=== PATIENT | female | born 1990 | race Caucasian/White ===

== ENCOUNTER 2016-07-01 09:23 | Emergency (ER) | payer OTHER ==
[~2016-07-01 09:23] MED LIST: /MOM400 PO; ACET50TA PO; ANUS2.5C2 PR; COLA50CA3 PO; IBUP600T26 PO; ZANT150T PO; [UNRECOGNIZED DRUG - OTHER] PO
[2016-07-01] MEDS ORDERED: IBUPROFEN 800 MG TAB As Ordered ONE (10:28)
--- NOTE | 2016-07-01 10:49 | REP ---
Clinical: Trauma. Technique: AP, lateral, bilateral oblique views. Findings: Minimally displaced oblique fracture of the fifth toe proximal phalanx with overlying soft tissue swelling noted. No other fracture or dislocation is appreciated. Impression: Minimally displaced fifth proximal phalanx fracture. Signed by Juan Maria MD 07/01/2016 10:41 A
--- NOTE | 2016-07-01 11:31 | EDDOCDS ---
Nurse's Notes [facility] Name: Rubi Mccauley Age: 26 yrs Sex: Female : 1990 Arrival Date: 07/01/2016 Time: 09:23 Bed TR8 Private MD: NO PRIMARY PHYSICIAN, . Diagnosis: Displaced fracture of distal phalanx of left lesser toe(s)-5th proximal phalanx fracture, Closed Presentation: 07/01 09:34 Presenting complaint: Patient states: injured left fifth toe, accidentally kicked a po baby gate. Adult Sepsis Screening: The patient does not have new or worsening altered mentation. Patient's respiratory rate is less than 22. Systolic blood pressure is greater than 100. Patient has a qSOFA score of 0- Negative Sepsis Screen. Suicide/Homicide risk assessment- the patient denies having any suicidal and/or homicidal ideations and does not present with any other emotional, behavioral or mental health complaints. Status: The patient is a dependent. Transition of care: patient was not received from another setting of care. 09:34 Acuity: TAMEKA Level 4 po 09:34 Method Of Arrival: Walkin/Carried/Asstd po Triage Assessment: 09:36 General: Appears in no apparent distress, Behavior is appropriate for age, cooperative, po pleasant. Pain: Location: left fifth toe Pain currently is 4 out of 10 on a pain scale. Is continuous Aggravated by weight bearing. Pt Declines HIV testing. Neurological: No deficits noted. Respiratory: Airway is patent Respiratory effort is even, unlabored. Derm: Skin is pink, warm & dry. 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 multivitamin Oral tab 1 tablet daily - PMHx: none; - PSHx: Tonsillectomy; - Social history: Smoking status: Patient states was never smoker of tobacco. No barriers to communication noted, The patient speaks fluent American. - Family history: Not pertinent. - : The pt / caregiver states he / she is not on anticoagulants. Home medication list is obtained from the patient. - Exposure Risk Screening:: None identified. Screenin:28 Screening information is obtained from the patient. Fall risk: At risk due to injury. ms18 Assistance ADL's: requires no assistance with activities of daily living. Abuse/DV Screen: The patient / caregiver reports he/she is: not in a situation that causes fear, pain or injury. Nutritional screening: No deficits noted. Advance Directives: There is no living will. home support is adequate. Assessment: 11:28 General: Appears in no apparent distress, comfortable, slender, Behavior is appropriate ms18 for age, cooperative, pleasant. Pain: Denies pain. Neurological: Level of Consciousness is awake, alert, obeys commands, Oriented to person, place, time. Respiratory: Airway is patent Respiratory effort is even, unlabored. Derm: Skin is pink, warm & dry. Musculoskeletal: Range of motion intact in all extremities. Vital Signs: 09:25 BP 115 / 55; Pulse 73; Resp 18; Temp 97.3; Pulse Ox 99% on R/A; Weight 52.16 kg (R); sar1 Height 5 ft. 7 in. (170.18 cm) (R); Pain 6/10; 11:08 BP 108 / 61; Pulse 59; Resp 18; Temp 96.4(O); Pulse Ox 97% on R/A; Pain 3/10; rn1 09:25 Body Mass Index 18.01 (52.16 kg, 170.18 cm) [facility] Vitals: 09:25 Log In Time: July 01, 2016 at 09:25. [facility] ED Course: 09:24 Patient visited by Mady Carpenter, Overlay Plastician. sar1 09:24 NO PRIMARY PHYSICIAN, . is Private Physician. sar1 09:24 Patient moved to Waiting sar1 09:26 Patient moved to Pre RCE sar1 09:35 Triage Initiated po 09:36 Arm band placed on left wrist. po 09:38 Patient visited by Von Torres,SOHAIL. po 10:01 Patient moved to Triage 2 mlb1 10:10 Emily Tony PA-C is [facility]. ef1 10:10 Mel Donnelly MD is Attending Physician. ef1 10:12 Patient visited by Emily Tony PA-C. ef1 10:30 Patient moved to TR2 mlb1 10:35 [facility] Payment Agreement was scanned into Medine and attached to record. mm15 10:55 Patient visited by Emily Tony PA-C. ef1 10:56 Patient moved to PR / 25 rn1 11:00 Foot, Complete Returned. [facility]. ef1 11:08 [facility] is Referral Physician. ef1 11:27 Patient moved to TR8 ms18 11:28 Patient visited by Fifi Avelar RN. ms18 11:28 The patient / caregiver is instructed regarding the plan of care and ED course. Patient ms18 has correct armband on for positive identification. Property :Personal belongings accompany Pt. 11:28 No IV's were initiated during this patient's visit. No procedures done that require ms18 assistance. Ortho shoe applied to left foot. Administered Medications: 10:30 Drug: Ibuprofen 800 mg [ibuprofen 800 mg tablet (1 tabs)] Route: PO; mlb1 Order Results: Radiology Order: Foot, Complete Test: Foot, Complete REASON FOR EXAMINATION: Trauma; Clinical: Trauma.; ; Technique: AP, lateral, bilateral oblique views.; ; Findings:; Minimally displaced oblique fracture of the fifth toe proximal phalanx with; overlying soft tissue swelling noted. No other fracture or dislocation is; appreciated.; ; Impression:; Minimally displaced fifth proximal phalanx fracture.; ; ; Signed by; Juan Maria MD 07/01/2016 10:41 A; Outcome: 11:08 Discharge ordered by Provider. ef1 11:28 Discharge Assessment: Patient awake, alert and oriented x 3. No cognitive and/or ms18 functional deficits noted. Patient verbalized understanding of disposition instructions. patient administered narcotics - no. The following High Risk Discharge criteria are identified: None. Discharged to home ambulatory, with crutches. Condition: good Condition: stable Condition: improved. Discharge instructions given to patient, Instructed on discharge instructions, follow up and referral plans. medication usage, crutch walking, Demonstrated understanding of instructions, crutch walking, medications, Pt was receptive of discharge instructions/ teaching. Prescriptions given X 1. No special radiology studies were completed. 11:31 Patient left the ED. ms18 Signatures: Dispatcher [employer] [facility] Von Torres,RN Eric Colbert RN RN mlb1 Emily Tony, PA-C PA-C ef1 Jericho Agrawal mm15 Fifi Avelar RN RN ms18 Mady Carpenter, Overlay Plastician Unit sar1 [place], [place] rn1 MTDD
--- NOTE | 2016-07-01 11:31 | EDDOCDS ---
Physician Documentation [facility] Name: Rubi Mccauley Age: 26 yrs Sex: Female : 1990 Arrival Date: 07/01/2016 Time: 09:23 Bed TR8 Private MD: NO PRIMARY PHYSICIAN, . Disposition: 07/01/16 11:08 Discharged to Home/Self Care. Impression: Displaced fracture of distal phalanx of left lesser toe(s) - 5th proximal phalanx fracture, Closed. - Condition is Stable. - Discharge Instructions: Toe Fracture, [id number]. - Prescriptions for Ibuprofen 800 mg Oral Tablet - take 1 tablet by ORAL route every 8 hours As needed take with food; 30 tablet. - Referral List Call for Appointment, Medication Reconciliation, Local Pharmacy Hours form. - Follow up: [facility]; When: 1 - 2 days; Reason: Further diagnostic work-up, Recheck today's complaints, Continuance of care. Follow up: Emergency Department; Reason: Worsening of conditions. [facility]: [facility] ; When: Call to arrange an appointment; Reason: Further diagnostic work-up, Recheck today's complaints, Continuance of care. - Problem is new. - Symptoms have improved. Historical: - Allergies: Vicodin (Rash, Vomit); - Home Meds: 1. multivitamin Oral tab 1 tablet daily - PMHx: none; - PSHx: Tonsillectomy; - Social history: Smoking status: Patient states was never smoker of tobacco. No barriers to communication noted, The patient speaks fluent Kinyarwanda. - Family history: Not pertinent. - : The pt / caregiver states he / she is not on anticoagulants. Home medication list is obtained from the patient. - Exposure Risk Screening:: None identified. 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 7 in. (170.18 cm) (R); Pain 6/10; 11:08 BP 108 / 61; Pulse 59; Resp 18; Temp 96.4(O); Pulse Ox 97% on R/A; Pain 3/10; rn1 09:25 Body Mass Index 18.01 (52.16 kg, 170.18 cm) sar1 Procedures: 10:55 Fracture care/splinting: Splint applied to left foot using post op shoe please. applied ef1 by tech. Examined by me, post splint application: neurovascular intact, 2+ distal pulses palpable, brisk capillary refill noted, Patient tolerated well. MDM: 10:25 Ibuprofen 800 mg PO once ordered. ef1 10:25 Ice Pack ordered. ef1 10:26 Foot, Complete Ordered. EDMS 10:35 Financial registration complete. mm15 10:35 [facility] Payment Agreement was scanned into [email or web address] and attached to record. mm15 10:55 Splint Affected Extremity ordered. ef1 10:55 Crutches ordered. ef1 Administered Medications: 10:30 Drug: Ibuprofen 800 mg [ibuprofen 800 mg tablet (1 tabs)] Route: PO; mlb1 Signatures: Dispatcher [employer] EDME Von Torres RN RN po Emily Tony, PA-C PA-C ef1 Jericho Agrawal mm15 Fifi Avelar RN RN ms18 Eric Ernandez RN mlb1 The chart was reviewed and I authenticate all verbal orders and agree with the evaluation and treatment provided.Attachments: 10:35 [facility] Payment Agreement mm15 MTDD
--- NOTE | 2016-07-03 12:31 | EDDOCDS ---
Physician Documentation [facility] Name: Rubi Mccauley Age: 26 yrs Sex: Female : 1990 Arrival Date: 07/01/2016 Time: 09:23 Bed TR8 Private MD: NO PRIMARY PHYSICIAN, . Disposition: 07/01/16 11:08 Discharged to Home/Self Care. Impression: Displaced fracture of distal phalanx of left lesser toe(s) - 5th proximal phalanx fracture, Closed. - Condition is Stable. - Discharge Instructions: Toe Fracture, [id number]. - Prescriptions for Ibuprofen 800 mg Oral Tablet - take 1 tablet by ORAL route every 8 hours As needed take with food; 30 tablet. - Referral List Call for Appointment, Medication Reconciliation, Local Pharmacy Hours form. - Follow up: [facility]; When: 1 - 2 days; Reason: Further diagnostic work-up, Recheck today's complaints, Continuance of care. Follow up: Emergency Department; Reason: Worsening of conditions. [facility]: [facility] ; When: Call to arrange an appointment; Reason: Further diagnostic work-up, Recheck today's complaints, Continuance of care. - Problem is new. - Symptoms have improved. Historical: - Allergies: Vicodin (Rash, Vomit); - Home Meds: 1. multivitamin Oral tab 1 tablet daily - PMHx: none; - PSHx: Tonsillectomy; - Social history: Smoking status: Patient states was never smoker of tobacco. No barriers to communication noted, The patient speaks fluent Kyrgyz. - Family history: Not pertinent. - : The pt / caregiver states he / she is not on anticoagulants. Home medication list is obtained from the patient. - Exposure Risk Screening:: None identified. 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 7 in. (170.18 cm) (R); Pain 6/10; 11:08 BP 108 / 61; Pulse 59; Resp 18; Temp 96.4(O); Pulse Ox 97% on R/A; Pain 3/10; rn1 09:25 Body Mass Index 18.01 (52.16 kg, 170.18 cm) sar1 Procedures: 10:55 Fracture care/splinting: Splint applied to left foot using post op shoe please. applied ef1 by tech. Examined by me, post splint application: neurovascular intact, 2+ distal pulses palpable, brisk capillary refill noted, Patient tolerated well. MDM: 10:25 Ibuprofen 800 mg PO once ordered. ef1 10:25 Ice Pack ordered. ef1 10:26 Foot, Complete Ordered. EDMS 10:35 Financial registration complete. mm15 10:35 [facility] Payment Agreement was scanned into Fleep and attached to record. mm15 10:55 Splint Affected Extremity ordered. ef1 10:55 Crutches ordered. ef1 17:19 T-Sheet-- Draft Copy was scanned into Fleep and attached to record. klr 07/02 12:06 Radiology Report was scanned into Fleep and attached to record. gb Administered Medications: 07/01 10:30 Drug: Ibuprofen 800 mg [ibuprofen 800 mg tablet (1 tabs)] Route: PO; mlb1 Signatures: Dispatcher [employer] EDID Von Torres RN RN po Meaghan Velazquez, Reg Reg gb Emily Tony, PA-C PA-C ef1 Jericho Agrawal mm15 Fifi Avelar,RN RN ms18 Cielo Christensen Michael B RN mlb1 The chart was reviewed and I authenticate all verbal orders and agree with the evaluation and treatment provided.Attachments: 10:35 [facility] Payment Agreement mm15 17:19 T-Sheet-- Draft Copy klr Chart Complete MTDD
--- NOTE | 2016-07-03 12:31 | EDDOCDS ---
Physician Documentation [facility] Name: Rubi Mccauley Age: 26 yrs Sex: Female : 1990 Arrival Date: 07/01/2016 Time: 09:23 Bed TR8 Private MD: NO PRIMARY PHYSICIAN, . Disposition: 07/01/16 11:08 Discharged to Home/Self Care. Impression: Displaced fracture of distal phalanx of left lesser toe(s) - 5th proximal phalanx fracture, Closed. - Condition is Stable. - Discharge Instructions: Toe Fracture, [id number]. - Prescriptions for Ibuprofen 800 mg Oral Tablet - take 1 tablet by ORAL route every 8 hours As needed take with food; 30 tablet. - Referral List Call for Appointment, Medication Reconciliation, Local Pharmacy Hours form. - Follow up: [facility]; When: 1 - 2 days; Reason: Further diagnostic work-up, Recheck today's complaints, Continuance of care. Follow up: Emergency Department; Reason: Worsening of conditions. Follow up: [facility] ; When: Call to arrange an appointment; Reason: Further diagnostic work-up, Recheck today's complaints, Continuance of care. - Problem is new. - Symptoms have improved. Historical: - Allergies: Vicodin (Rash, Vomit); - Home Meds: 1. multivitamin Oral tab 1 tablet daily - PMHx: none; - PSHx: Tonsillectomy; - Social history: Smoking status: Patient states was never smoker of tobacco. No barriers to communication noted, The patient speaks fluent Maori. - Family history: Not pertinent. - : The pt / caregiver states he / she is not on anticoagulants. Home medication list is obtained from the patient. - Exposure Risk Screening:: None identified. 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 7 in. (170.18 cm) (R); Pain 6/10; 11:08 BP 108 / 61; Pulse 59; Resp 18; Temp 96.4(O); Pulse Ox 97% on R/A; Pain 3/10; rn1 09:25 Body Mass Index 18.01 (52.16 kg, 170.18 cm) sar1 Procedures: 10:55 Fracture care/splinting: Splint applied to left foot using post op shoe please. applied ef1 by tech. Examined by me, post splint application: neurovascular intact, 2+ distal pulses palpable, brisk capillary refill noted, Patient tolerated well. MDM: 10:25 Ibuprofen 800 mg PO once ordered. ef1 10:25 Ice Pack ordered. ef1 10:26 Foot, Complete Ordered. EDMS 10:35 Financial registration complete. mm15 10:35 [facility] Payment Agreement was scanned into ProtAb and attached to record. mm15 10:55 Splint Affected Extremity ordered. ef1 10:55 Crutches ordered. ef1 17:19 T-Sheet-- Draft Copy was scanned into ProtAb and attached to record. klr 07/02 12:06 Radiology Report was scanned into ProtAb and attached to record. gb Administered Medications: 07/01 10:30 Drug: Ibuprofen 800 mg [ibuprofen 800 mg tablet (1 tabs)] Route: PO; mlb1 Signatures: Dispatcher [employer] EDMT Von Torres RN RN po Meaghan Velazquez, Reg Reg gb Emily Tony, PA-C PA-C ef1 Jericho Agrawal mm15 Fifi Avelar,RN RN ms18 Cielo Christensen Michael B RN mlb1 The chart was reviewed and I authenticate all verbal orders and agree with the evaluation and treatment provided.Attachments: 10:35 [facility] Payment Agreement mm15 17:19 T-Sheet-- Draft Copy klr Chart Complete MTDD
--- NOTE | 2016-07-03 12:32 | EDDOCDS ---
Nurse's Notes [facility] Name: Rubi Mccauley Age: 26 yrs Sex: Female : 1990 Arrival Date: 07/01/2016 Time: 09:23 Bed TR8 Private MD: NO PRIMARY PHYSICIAN, . Diagnosis: Displaced fracture of distal phalanx of left lesser toe(s)-5th proximal phalanx fracture, Closed Presentation: 07/01 09:34 Presenting complaint: Patient states: injured left fifth toe, accidentally kicked a po baby gate. Adult Sepsis Screening: The patient does not have new or worsening altered mentation. Patient's respiratory rate is less than 22. Systolic blood pressure is greater than 100. Patient has a qSOFA score of 0- Negative Sepsis Screen. Suicide/Homicide risk assessment- the patient denies having any suicidal and/or homicidal ideations and does not present with any other emotional, behavioral or mental health complaints. Status: The patient is a dependent. Transition of care: patient was not received from another setting of care. 09:34 Acuity: TAMEKA Level 4 po 09:34 Method Of Arrival: Walkin/Carried/Asstd po Triage Assessment: 09:36 General: Appears in no apparent distress, Behavior is appropriate for age, cooperative, po pleasant. Pain: Location: left fifth toe Pain currently is 4 out of 10 on a pain scale. Is continuous Aggravated by weight bearing. Pt Declines HIV testing. Neurological: No deficits noted. Respiratory: Airway is patent Respiratory effort is even, unlabored. Derm: Skin is pink, warm & dry. 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 multivitamin Oral tab 1 tablet daily - PMHx: none; - PSHx: Tonsillectomy; - Social history: Smoking status: Patient states was never smoker of tobacco. No barriers to communication noted, The patient speaks fluent Macedonian. - Family history: Not pertinent. - : The pt / caregiver states he / she is not on anticoagulants. Home medication list is obtained from the patient. - Exposure Risk Screening:: None identified. Screenin:28 Screening information is obtained from the patient. Fall risk: At risk due to injury. ms18 Assistance ADL's: requires no assistance with activities of daily living. Abuse/DV Screen: The patient / caregiver reports he/she is: not in a situation that causes fear, pain or injury. Nutritional screening: No deficits noted. Advance Directives: There is no living will. home support is adequate. Assessment: 11:28 General: Appears in no apparent distress, comfortable, slender, Behavior is appropriate ms18 for age, cooperative, pleasant. Pain: Denies pain. Neurological: Level of Consciousness is awake, alert, obeys commands, Oriented to person, place, time. Respiratory: Airway is patent Respiratory effort is even, unlabored. Derm: Skin is pink, warm & dry. Musculoskeletal: Range of motion intact in all extremities. Vital Signs: 09:25 BP 115 / 55; Pulse 73; Resp 18; Temp 97.3; Pulse Ox 99% on R/A; Weight 52.16 kg (R); sar1 Height 5 ft. 7 in. (170.18 cm) (R); Pain 6/10; 11:08 BP 108 / 61; Pulse 59; Resp 18; Temp 96.4(O); Pulse Ox 97% on R/A; Pain 3/10; rn1 09:25 Body Mass Index 18.01 (52.16 kg, 170.18 cm) [facility] Vitals: 09:25 Log In Time: July 01, 2016 at 09:25. [facility] ED Course: 09:24 Patient visited by Mady Carpenter, Sprue Knocker. sar1 09:24 NO PRIMARY PHYSICIAN, . is Private Physician. sar1 09:24 Patient moved to Waiting sar1 09:26 Patient moved to Pre RCE sar1 09:35 Triage Initiated po 09:36 Arm band placed on left wrist. po 09:38 Patient visited by Von Torres,SOHAIL. po 10:01 Patient moved to Triage 2 mlb1 10:10 [facility]. ef1 10:10 Mel Donnelly MD is Attending Physician. ef1 10:12 Patient visited by Emily Tony PA-C. ef1 10:30 Patient moved to TR2 mlb1 10:35 [facility] Payment Agreement was scanned into K-M[employer]ION Interactive and attached to record. mm15 10:55 Patient visited by Emily Tony PA-C. ef1 10:56 Patient moved to PR / 25 rn1 11:00 Foot, Complete Returned. [facility]. ef1 11:08 [facility] is Referral Physician. ef1 11:27 Patient moved to TR8 ms18 11:28 Patient visited by Fifi Avelar RN. ms18 11:28 The patient / caregiver is instructed regarding the plan of care and ED course. Patient ms18 has correct armband on for positive identification. Property :Personal belongings accompany Pt. 11:28 No IV's were initiated during this patient's visit. No procedures done that require ms18 assistance. Ortho shoe applied to left foot. 17:19 T-Sheet-- Draft Copy was scanned into [employer] and attached to record. klr 01 12:06 Radiology Report was scanned into K-M[employer] Interactive and attached to record. gb Administered Medications: 07/01 10:30 Drug: Ibuprofen 800 mg [ibuprofen 800 mg tablet (1 tabs)] Route: PO; mlb1 Order Results: Radiology Order: Foot, Complete Test: Foot, Complete REASON FOR EXAMINATION: Trauma; Clinical: Trauma.; ; Technique: AP, lateral, bilateral oblique views.; ; Findings:; Minimally displaced oblique fracture of the fifth toe proximal phalanx with; overlying soft tissue swelling noted. No other fracture or dislocation is; appreciated.; ; Impression:; Minimally displaced fifth proximal phalanx fracture.; ; ; Signed by; Juan Maria MD 07/01/2016 10:41 A; Outcome: 11:08 Discharge ordered by Provider. ef1 11:28 Discharge Assessment: Patient awake, alert and oriented x 3. No cognitive and/or ms18 functional deficits noted. Patient verbalized understanding of disposition instructions. patient administered narcotics - no. The following High Risk Discharge criteria are identified: None. Discharged to home ambulatory, with crutches. Condition: good Condition: stable Condition: improved. Discharge instructions given to patient, Instructed on discharge instructions, follow up and referral plans. medication usage, crutch walking, Demonstrated understanding of instructions, crutch walking, medications, Pt was receptive of discharge instructions/ teaching. Prescriptions given X 1. No special radiology studies were completed. 11:31 Patient left the ED. ms18 Signatures: Dispatcher [facility] Von Torres RN RN Meaghan Liu Reg Reg gb Awais, Eric Gerardo RN RN mlb1 Emily Tony, PA-C PA-C ef1 Jericho Agrawal mm15 Fifi Avelar,RN RN ms18 Mady Carpenter, Sprue Knocker Unit sar1 Randolph Avila rn1 Cielo Christensen Chart Complete MTDD
== END 2016-07-01 11:31 | disposition home or self-care (01) ==
LOC: M ED 09:23
DX: S92.512A Displaced fracture of proximal phalanx of left lesser toe(s), initial encounter for closed fracture (principal); W22.8XXA Striking against or struck by other objects, initial encounter; Y92.019 Unspecified place in single-family (private) house as the place of occurrence of the external cause; Y93.9 Activity, unspecified; Y99.9 Unspecified external cause status; Z79.899 Other long term (current) drug therapy; Z88.5 Allergy status to narcotic agent

== ENCOUNTER → 2016-08-01 | Outpatient (CLI) | payer OTHER ==
[2016-08-01 14:02] LABS: FREE T4 0.89 NG/DL (0.76-1.46)
== END ==
LOC: M SMT 11:49
PROVIDERS: ATTEND Advanced Practice Midwife
DX: Z12.4 Encounter for screening for malignant neoplasm of cervix (principal); R53.82 Chronic fatigue, unspecified
CPT/HCPCS: 36415; 84439; 84443; G0123

== ENCOUNTER → 2016-11-06 | Outpatient (CLI) | payer OTHER ==
[2016-11-06 20:42] LABS: CONTROL LINE HCG INT CTR LINE PRESENT
== END ==
LOC: M SMT 15:28
PROVIDERS: ATTEND Advanced Practice Midwife
DX: N92.6 Irregular menstruation, unspecified (principal)